=== PATIENT | female | born 1935 | race Caucasian/White ===

== ENCOUNTER → 2017-06-14 | Day surgery (SDC) | payer MEDICARE, BC ==
[2017-06-12 11:39] LABS: BASOPHILS # (AUTO) 0.1 (0.0-0.1); BASOPHILS % 0.8 % (0.0-1.0); EOSINOPHILS # (AUTO) 0.1 (0.0-0.4); EOSINOPHILS % 1.5 % (0.0-6.0); HEMATOCRIT 39.1 % (34.2-44.1); HEMOGLOBIN 12.8 g/dL (12.0-16.0); LYMPHOCYTES # (AUTO) 3.6 (1.0-3.2); LYMPHOCYTES % 38.6 % (18.0-39.1); MEAN CORPUSCULAR HEMOGLOBIN 30.9 pg (28-32); MEAN CORPUSCULAR HGB CONC 32.7 g/dL (31-35); MEAN CORPUSCULAR VOLUME 94.4 fL (81-99); MONOCYTES # (AUTO) 0.9 (0.2-0.8); MONOCYTES % 9.2 % (4.4-11.3); NEUTROPHILS # (AUTO) 4.5 (2.1-6.9); PLATELET COUNT 266 x10e3/uL (140-360); RED BLOOD COUNT 4.14 x10e6/uL (3.6-5.1); RED CELL DISTRIBUTION WIDTH 12.8 % (11.7-14.4)
[~2017-06-14] MED LIST: ADVAIR 250-501 EACH INH; ARMOUR PO; ARMOUR THYROID15 MG PO; ASA81 MG; ASPIR 8181 MG; ASPIR 8181 MG PO; CALCIUM PO; DYMISTA NASAL S23 GM; ELAVIL25 MG PO; EVOLOCUMAB INJ; FOSINOPRIL SODI10 MG PO; HYDROCHLOROTHIA25 MG; ISOSORBIDE MON120 MG PO; ISOSORBIDE MONO30 MG PO; LASIX40 MG PO; LIDOCAINE HCL 2% LOCAL INJ 5 ML SDV VIAL INJ ONE; NEXIUM40 MG PO; NITROGLYCERIN0.4 MG SL; NITROQUICK0.4 M1; POTASSIUM CHLO10 ME1 PO; PROPOFOL IV EMULSION 10 MG/ML 50 ML VIAL ONE; PROTONIX40 MG PO; RANEXA500 MG PO; VITAMIN B COMP1 EAC1 PO; VITAMIN D3400 UNIT PO; Z ARMOUR THYROID; Z.0.ISOSORBIDE MONO6 PO; Z.0.LOVAZA1 GM; Z.0.TOPROL XL100 MG PO; ZINC PO; [UNRECOGNIZED DRUG - OTHER]; [UNRECOGNIZED DRUG - OTHER] PO
--- OUTSIDE RECORDS SUMMARY | 2017-06-14 12:07 | XMS REPORT | Clinical Summary ---
Author Author [facility] Organization [facility] Address Unknown Phone Unavailable Care Team Providers Care It Portfolio Manager Name Role Phone Asked, Pcp PCP Unavailable Allergies Active Allergy Reactions Severity Noted Date Comments Alendronate Atorvastatin Fluvastatin Penicillins Pravastatin Ranitidine Hcl Vtwvujb-Uee-Tpn Reductase Inhibitors Sulfa (Sulfonamide Antibiotics) Current Medications Prescription Sig. Disp. Refills Start End Date Status Date fosinopril (MONOPRIL) 40 Take 2 tablets (80 mg 180 tablet 3 06/28/19 06/28/19 Active MG tablet total) by mouth daily. 17 18 isosorbide mononitrate Take 1 tablet (30 mg 90 tablet 3 06/28/1912/09 Active (IMDUR) 30 MG 24 hr total) by mouth daily. 17 18 tablet ranolazine (RANEXA) 500 Take 1 tablet (500 mg 180 tablet 3 06/28/19 06/28/19 Active MG 12 hr ER tablet total) by mouth 2 (two) 17 18 times a day. nitroglycerin (NITROSTAT) DISSOLVE 1 TABLET UNDER 275 tablet 3 Active 0.4 MG SL tablet THE TONGUE EVERY 5 17 MINUTES NEEDED CHEST PAIN ARMOUR THYROID 60 mg TK 1 T PO D 2 04/17/20 Active tablet 16 pantoprazole (PROTONIX) TK 1 T PO BID AC 2 04/28/19 Active 40 MG EC tablet 17 cholecalciferol (VITAMIN Take 10,000 Units by Active D3) 10,000 unit capsule mouth daily. CALCIUM CARB,GLUC/MAG Take 1 capsule by mouth Active OX,GLUC (CALCIUM daily. MAGNESIUM ORAL) amitriptyline (ELAVIL) 25 Take 25 mg by mouth Active MG tablet nightly as needed for sleep. metoprolol succinate XL Take 1 tablet (50 mg 90 tablet 3 08/15/19 Active (TOPROL-XL) 50 mg 24 hr total) by mouth daily. 17 18 tablet SYMBICORT 160-4.5 U 1 PUFF PO BID 6 01/03/20 Active mcg/actuation inhaler 17 brompheniramine-pseudoeph TK 5 ML PO Q 4 TO 6 H FOR 0 01/02/20 Active -DM 2-30-10 mg/5 mL syrup 7 DAYS 17 levoFLOXacin (LEVAQUIN) TK 1 T PO D 0 01/02/20 Active 500 MG tablet 17 predniSONE (DELTASONE) 10 TK 1 T PO BID 0 01/02/20 Active mg tablet 17 potassium chloride Take 1 tablet (10 mEq 90 tablet 3 02/06/20 Active (KLOR-CON) 10 MEQ CR total) by mouth daily. 17 18 tabletIndications: Heart failure, unspecified heart failure chronicity, unspecified heart failure type, Secondary hypertension, Coronary artery disease without angina pectoris, unspecified vessel or lesion type, unspecified whether [place] or transplanted heart evolocumab (REPATHA) 140 Inject 1 mL (140 mg 6 Syringe 3 05/28/19 Active mg/mL pen injector total) under the skin 18 19 injectionIndications: every 14 (fourteen) days. Coronary arteriosclerosis, Heart failure, unspecified heart failure chronicity, unspecified heart failure type furosemide (LASIX) 20 mg Take 2 tablets (40 mg 180 tablet 3 05/28/19 05/28/19 Active tabletIndications: Heart total) by mouth daily. 18 19 failure, unspecified heart failure chronicity, unspecified heart failure type, Secondary hypertension, Coronary artery disease without angina pectoris, unspecified vessel or lesion type, unspecified whether [place] or transplanted heart, Coronary arteriosclerosis aspirin (ECOTRIN) 81 MG Take 1 tablet (81 mg 90 tablet 3 05/28/19 Active enteric coated total) by mouth daily. 18 19 tabletIndications: Coronary arteriosclerosis, Heart failure, unspecified heart failure chronicity, unspecified heart failure type aspirin (ECOTRIN) 81 MG Take 1 tablet (81 mg 90 tablet 3 06/28/19 Discontin enteric coated tablet total) by mouth daily. 17 18 ued metoprolol succinate XL Take 1 tablet (100 mg 90 tablet 3 06/28/19 07/11/19 Discontin (TOPROL-XL) 100 mg 24 hr total) by mouth daily. 17 17 ued tablet nitroglycerin (NITROSTAT) Place 1 tablet (0.4 mg 30 tablet 11 06/28/19 Discontin 0.4 MG SL tablet total) under the tongue 17 17 ued every 5 (five) minutes as needed for chest pain. metoprolol succinate XL Take 3 tablets (75 mg 90 tablet 6 07/11/19 08/15/19 Discontin (TOPROL-XL) 25 mg 24 hr total) by mouth daily. 17 17 ued tabletIndications: Bradycardia ezetimibe (ZETIA) 10 mg TK 1 T PO QD 0 01/19/20 02/07/20 Discontin tablet 17 17 ued furosemide (LASIX) 20 mg Take 1 tablet (20 mg 180 tablet 3 02/06/20 05/28/19 Discontin tabletIndications: Heart total) by mouth daily. 17 18 ued failure, unspecified heart failure chronicity, unspecified heart failure type, Secondary hypertension, Coronary artery disease without angina pectoris, unspecified vessel or lesion type, unspecified whether [place] or transplanted heart evolocumab (REPATHA Inject 1 mL (140 mg 2 Syringe 12 02/06/20 SURECLICK) 140 mg/mL pen total) under the skin 17 17 injector injection every 14 (fourteen) days for 2 doses. 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 In 2003 after her CABG her SVG to OM and ANGULO were occluded--she underwent LM PCI and [place] OM PCI. She has intermittent chest pain, sometimes in middle of back, 2-3x/week. It typically lasts until she takes 1-2 NTG SL. Pain occurs often when supine, resting. Pain is sometimes pounding but lately has been a different nature such as stabbing pain. Her chest pain is increasing in frequency. INTERIM HISTORY: She had a angiogram January 2015 showing patent LM stent, OM lesion 70% but negative FFR, and 40-50% stenosis of RCA distal to SVG anastomosis. She recently developed pain in both legs since climbing up and down the stairs last week at a restaurant. Her chest pain is much better, except rarely at night if sleeps on side. Her GERD is severe. Assessment / Plan 1. Essential hypertension - Increase fosinopril to 80 daily. Continue metoprolol I10: Essential (primary) hypertension ELECTROCARDIOGRAM HIGH BLOOD PRESSURE: CARE INSTRUCTIONS LEARNING ABOUT HIGH BLOOD PRESSURE 2. Coronary arteriosclerosis I25.10: Atherosclerotic heart disease of [place] coronary artery without angina pectoris fosinopril 40 mg tablet - Take 2 tablet(s) every day by oral route for 90 days. Qty: 180 tablet(s) Refills : 1 [facility]: [facility] [id number] 3. Pain in lower limb - Right leg pain/swelling. Check Doppler. M79.669: Pain in unspecified lower leg ULTRASOUND, ARTERIAL LEG, BILATERAL - Note to Imaging Facility: Bilateral Arterial Venous Doppler Problem Noted Date Heart failure 02/07/2017 Secondary hypertension 02/07/2017 Coronary artery disease without angina pectoris 02/07/2017 Essential hypertension 08/14/2016 Coronary arteriosclerosis 07/10/2016 Bradycardia 07/10/2016 Encounters Date Type Specialty Care Team Description 05/28/2017 Office Visit Cardiology Angelo Ramírez MD Coronary arteriosclerosis (Primary Dx); Heart failure, unspecified heart failure chronicity, unspecified heart failure type; Secondary hypertension; Coronary artery disease without angina pectoris, unspecified vessel or lesion type, unspecified whether [place] or transplanted heart 05/27/2017 Telephone Cardiology Traci Wright, BIA Labs Only 05/24/2017 Telephone Cardiology Jocelyn Chow, RN Return Call 05/24/2017 Telephone Cardiology Traci Wright, BIA Labs Only 02/06/2017 Orders Only Cardiology Angelo Ramírez MD 02/05/2017 Office Visit Cardiology Angelo Ramírez MD Heart failure, unspecified heart failure chronicity, unspecified heart failure type (Primary Dx); Secondary hypertension; Coronary artery disease without angina pectoris, unspecified vessel or lesion type, unspecified whether [place] or transplanted heart 08/14/2016 Office Visit Cardiology Angelo Ramírez MD Coronary arteriosclerosis (Primary Dx); Bradycardia; Essential hypertension 07/16/2016 Orders Only Cardiology Carolyn Reaves MA Bradycardia 07/10/2016 Office Visit Cardiology Angelo Ramírez MD Coronary arteriosclerosis (Primary Dx); Bradycardia 06/27/2016 Refill Cardiology Angelo Ramírez MD Med Refill 06/27/2016 Refill Cardiology Liane Barajas RN Med Refill after 06/13/2016 Family History Medical History Relation Name Comments Cardiomyopathy Mother Relation Name Status Comments Mother Social History Tobacco Use Types Packs/Day Years Used Date Former Smoker Cigarettes Smokeless Tobacco: Never Used Tobacco Cessation: Counseling Given: Yes Alcohol Use Drinks/Week oz/Week Comments No Sex Assigned at Date Recorded Not on file Last Filed Vital Signs Vital Sign Reading Time Taken Blood Pressure 143/74 05/28/2017 2:12 PM SALES PERSON Pulse 55 05/28/2017 2:12 PM SALES PERSON Temperature - - Respiratory Rate 17 07/10/2016 4:31 PM CDT Oxygen Saturation - - Inhaled Oxygen - - Concentration Weight 72.6 kg (160 lb) 05/28/2017 2:12 PM SALES PERSON Height 157.5 cm (5' 2") 05/28/2017 2:12 PM SALES PERSON Body Mass Index 29.26 05/28/2017 2:12 PM SALES PERSON Plan of Treatment Health Maintenance Due Date Last Done Comments ZOSTER VACCINE 1996 PNEUMOCOCCAL 2001 POLYSACCHARIDE VACCINE AGE 65 AND OVER PNEUMOCOCCAL-13 2001 INFLUENZA VACCINE 11/20/2016 Procedures Procedure Name Priority Date/Time Associated Diagnosis Comments CV HOLTER MONITOR 48 HOUR Routine 07/10/2016 Bradycardia Results for this 5:13 PM CDT procedure are in the results section. after 06/13/2016 Results * CBC with platelet and differential (05/27/2017 10:05 AM) Component Value Ref Range WBC 7.5 3.8 - 10.8 Thousand/uL RBC 4.26 3.80 - 5.10 Million/uL HGB 13.0 11.7 - 15.5 g/dL HCT 38.4 35.0 - 45.0 % MCV 90.1 80.0 - 100.0 fL MCH 30.5 27.0 - 33.0 pg MCHC 33.9 32.0 - 36.0 g/dL RDW 12.2 11.0 - 15.0 % Platelet count 287 140 - 400 Thousand/uL MPV 9.6 7.5 - 12.5 fL Neutrophils, absolute 2,633 1,500 - 7,800 cells/uL Lymphocytes, absolute 3,990 (H) 850 - 3,900 cells/uL Monocytes, absolute 713 200 - 950 cells/uL Eosinophils, absolute 113 15 - 500 cells/uL Basophils, absolute 53 0 - 200 cells/uL Neutrophils 35.1 % Lymphocytes 53.2 % Monocytes 9.5 % Eosinophils 1.5 % Basophils + RC 0.7 % Specimen Performing Laboratory [facility] * B natriuretic peptide (05/27/2017 10:05 AM) Component Value Ref Range BNP 68 <100 pg/mL Comment: BNP levels increase with age in the general population with the highest values seen in individuals greater than 75 years of age. Reference: J. Am. Tomas. Cardiol. 2002; 40:976-982. Specimen Performing Laboratory [facility] * Lipid panel (05/27/2017 10:05 AM) Component Value Ref Range Cholesterol, total 223 (H) <200 mg/dL HDL cholesterol 57 >50 mg/dL Triglycerides 217 (H) <150 mg/dL LDL cholesterol 130 (H) mg/dL (calc) calculated Comment: Reference range: <100 Desirable range <100 mg/dL for patients with CHD or diabetes and <70 mg/dL for diabetic patients with known heart disease. LDL-C is now calculated using the Haroon-Osvaldo calculation, which is a validated novel method providing better accuracy than the Friedewald equation in the estimation of LDL-C. Haroon ALBARADO et al. DINH. 2013;310(19): 5851-5241 (http://education.Maktoob.[employer]/faq/VLK497) Cholesterol/HDL ratio 3.9 <5.0 (calc) Non-HDL cholesterol 166 (H) <130 mg/dL (calc) Comment: For patients with diabetes plus 1 major ASCVD risk factor, treating to a non-HDL-C goal of <100 mg/dL (LDL-C of <70 mg/dL) is considered a therapeutic option. Specimen Performing Laboratory [facility] * Basic metabolic panel (05/27/2017 10:05 AM) Component Value Ref Range Glucose 98 65 - 99 mg/dL Comment: Fasting reference interval BUN, whole blood 24 7 - 25 mg/dL Creatinine 1.17 (H) 0.60 - 0.88 mg/dL Comment: For patients >49 years of age, the reference limit for Creatinine is approximately 13% higher for people identified as -Estonian. EGFR Non-Afr. Estonian 44 (L) > OR=60 mL/min/1.73m2 EGFR 51 (L) > OR=60 mL/min/1.73m2 BUN/creatinine ratio 21 6 - 22 (calc) Sodium 138 135 - 146 mmol/L Potassium 4.3 3.5 - 5.3 mmol/L Chloride 100 98 - 110 mmol/L CO2 30 20 - 31 mmol/L Calcium 9.7 8.6 - 10.4 mg/dL Specimen Performing Laboratory [facility] * Cv holter monitor 48 hour (07/10/2016 5:13 PM) Component Value Ref Range Hookup Date 20160710 Hookup Time 090444 Acquisition Duration 436320 # of Ventricular Beats in 0 Runs # OF LONGEST VENTRICULAR BEATS # of Supraventricular 0 Beats in Runs # of Longest Supraventricular Beats Max Heart Rate 83 Min Heart Rate 39 Longest RR 1.718 Diagnosis -EPISODES OF BRADYCARDIA- Specimen Performing Laboratory [facility] [address] [place] [address] * ECG 12 lead (07/10/2016 3:30 PM) Component Value Ref Range Ventricular rate 50 Atrial rate 50 AR interval 116 QRSD interval 84 QT interval 434 QTC interval 395 P axis 1 33 QRS axis 1 26 T wave axis 48 EKG impression Sinus bradycardia-ST & T wave abnormality, consider anterior ischemia-Abnormal ECG-In automated comparison with ECG of 27-JAN-2015 08:51,-premature atrial complexes are no longer present but otherwise no significant change--- Specimen Performing Laboratory [facility] [address] [place] [address] after 06/13/2016 Insurance Payer Benefit Subscriber ID Type Phone Address Plan / Group MEDICARE MEDICARE xxxxxxxxxx Medicare [place], [place] PART A AND B BCBS BCBS xxxxxxxxxxxx PPO CHOICE PPO/SHLOMO ROSS PPO JIMMY ALONSO Third Self 1935 Home: [address] [place] [address] Liability
--- OUTSIDE RECORDS SUMMARY | 2017-06-14 12:07 | XMS REPORT ---
Author Author [facility] Address Unknown Phone Unavailable Care Team Providers Care Blind Hanger Name Role Phone KRISTIAN HDEZ Unavailable Unavailable Problems This patient has no known problems. Allergies, Adverse Reactions, Alerts This patient has no known allergies or adverse reactions. Medications This patient has no known medications. Results Test Description Test Time Test Comments Text Results Atomic Results Result Comments CHEST SINGLE (PORTABLE) [address] [address] Patient Name: JIMMY ACEVEDO MR #: [id number] : 1935 Age/Sex: 81/F Req #: [id number] Adm Physician: KRISTIAN HDEZ MD Ordered by: CARLOS JO MD Report #: [id number] Location: [facility] Room/Bed: [place] [address] Procedure: [id number] DX/CHEST SINGLE (PORTABLE) Exam Date: 01/16/17 Exam Time: 0545 REPORT STATUS: Signed EXAMINATION: CHEST SINGLE (PORTABLE) INDICATION: Angina COMPARISON: 01/15/2017 FINDINGS: TUBES and LINES: None. LUNGS: Lungs are not well inflated. Lungs are clear. There is mild prominence of the central pulmonary vasculature, consistent with pulmonary venous congestion. PLEURA: No pleural effusion or pneumothorax. HEART AND MEDIASTINUM: Cardiac size is mildly enlarged. There are atherosclerotic calcifications within the aorta. BONES AND SOFT TISSUES: No acute osseous lesion. Soft tissues are unremarkable. UPPER ABDOMEN: No free air under the diaphragm. IMPRESSION: 1. No acute thoracic abnormality. 2. Cardiogenic vascular congestion without decompensation. Signed by: Dr. Prieto Bryan M.D. on 01/16/2017 6:05 AM Dictated By: PRIETO BROOKS MD 4 Transcribed By: NOEMY on 01/16/17604 COPY TO: CARLOS JO MD CHEST SINGLE (PORTABLE) [place] [address] Patient Name: JIMMY ACEVEDO MR #: [id number] : 1935 Age/Sex: 81/F Req #: [id number] Adm Physician: Ordered by: CARLOS JO MD Report #: [id number] Location: ER Room/Bed: Procedure: [id number] DX/CHEST SINGLE (PORTABLE) Exam Date: 01/15/17 Exam Time: 904 REPORT STATUS: Signed PROCEDURE: CHEST SINGLE (PORTABLE) COMPARISON: Chest x-ray, 08/29/16 INDICATIONS: SEVERE CHEST PAIN FINDINGS: Lines and tubes: None Heart size normal outflow lumbar and superior No focal pulmonary opacity, pleural effusion or pneumothorax. Upper abdomen unremarkable with no free air. No acute bony abnormality. Wire sternotomy sutures again noted. CONCLUSION: No evidence for acute disease. Dictated by: Ki Altman M.D. on 01/15/2017 at 9:33 Electronically approved by: Ki Altman M.D. on 01/15/2017 at 9:33 Dictated By: KI ALTMAN MD Transcribed By: YOEL on 01/15/17 0933 COPY TO: CARLOS JO MD
--- NOTE | 2017-06-14 16:16 | Operative Report ---
DATE OF PROCEDURE: June 14, 2017 REFERRING PHYSICIAN: Dr. Analia Merino. PROCEDURE PERFORMED: Esophagogastroduodenoscopy with esophageal dilatation over a wire. INDICATIONS FOR PROCEDURE: Dysphagia to solids and liquids. MEDICATION: Patient was done general endotracheal anesthesia. PROCEDURE: With the patient in the left lateral decubitus position and after induction of adequate general endotracheal anesthesia, the flexible fiberoptic Olympus gastroscope was introduced into the esophagus under direct visualization without any difficulty. A large amount of solids and liquid debris were encountered in the esophagus and the liquid debris was suctioned with ease. The scope then was navigated around the solid debris towards the GE junction which was strictured, we traversed with gentle persistent pressure with the scope. The stricture then was dilated to a size 17 Savory over a wire. The solid debris was then pushed into the stomach and the mucosa overlying the antrum on the body revealed some patchy areas of erythema. Pylorus was of normal contour and shape. Was intubated with ease and scope was advanced all the way to the 2nd portion of the duodenum. The scope was then withdrawn slowly. Mucosa overlying the proximal 2nd portion and the duodenal bulb appeared to be within normal limits. The scope was then withdrawn back into the stomach and retroflexed and mucosa overlying the fundus and the cardia grossly appeared to be within normal limits. The scope was then straightened out and it was subsequently withdrawn. Patient tolerated the procedure well. IMPRESSION: 1. Large amount of retained solid and liquid debris in the esophagus. 2. Tight stricture at gastroesophageal junction dilated over a wire to a size 17 Savory. 3. Gastritis. PLAN: Initiate GI soft diet. Continue Protonix 40 mg 1 p.o. a.c. b.i.d. Job#: [id number] cc:ANALIA MERINO MD
== END | disposition home or self-care (01) ==
LOC: OR 12:05
PROVIDERS: ATTEND Internal Medicine Gastroenterology
DX: K22.2 Esophageal obstruction (principal); K29.70 Gastritis, unspecified, without bleeding; T18.128A Food in esophagus causing other injury, initial encounter; K21.0 Gastro-esophageal reflux disease with esophagitis; I10 Essential (primary) hypertension; I25.810 Atherosclerosis of coronary artery bypass graft(s) without angina pectoris; X58.XXXA Exposure to other specified factors, initial encounter; Z01.810 Encounter for preprocedural cardiovascular examination; Z01.812 Encounter for preprocedural laboratory examination; Z79.82 Long term (current) use of aspirin; Z68.31 Body mass index [BMI] 31.0-31.9, adult; Z95.1 Presence of aortocoronary bypass graft; Z87.891 Personal history of nicotine dependence
CPT/HCPCS: 36415; 43450; 85025; 93005; J2001

== ENCOUNTER → 2017-06-27 | Day surgery (SDC) | payer MEDICARE, BC ==
[~2017-06-27] MED LIST changes: +FENTANYL CITRATE/PF 100MCG/2 ML INJ ONE
--- OUTSIDE RECORDS SUMMARY | 2017-06-27 12:42 | XMS REPORT | Clinical Summary ---
Author Author [facility] Address Unknown Phone Unavailable Care Team Providers Care Sewing Demonstrator Name Role Phone Asked, Pcp PCP Unavailable Allergies Active Allergy Reactions Severity Noted Date Comments Alendronate Atorvastatin Fluvastatin Penicillins Pravastatin Ranitidine Hcl Trmpebd-Vcp-Ghv Reductase Inhibitors Sulfa (Sulfonamide Antibiotics) Current Medications [...] unspecified vessel or lesion type, unspecified whether [place] or transplanted heart evolocumab (REPATHA) 140 Inject [...] unspecified vessel or lesion type, unspecified whether [place] or transplanted heart, Coronary arteriosclerosis aspirin (ECOTRIN) [...] unspecified vessel or lesion type, unspecified whether [place] or transplanted heart evolocumab (REPATHA Inject 1 [...] ANGULO were occluded--she underwent LM PCI and [place] OM PCI. She has intermittent chest pain, [...] Coronary arteriosclerosis I25.10: Atherosclerotic heart disease of [place] coronary artery without angina pectoris fosinopril 40 mg tablet - Take 2 tablet(s) every day by oral route for 90 days. Qty: 180 tablet(s) Refills : 1 Pharmacy: [facility] [id number] 3. Pain in lower limb - Right [...] unspecified vessel or lesion type, unspecified whether [place] or transplanted heart 05/27/2017 Telephone Cardiology Traci [...] unspecified vessel or lesion type, unspecified whether [place] or transplanted heart 08/14/2016 Office Visit Cardiology Angelo Ramírez MD Coronary arteriosclerosis (Primary Dx); Bradycardia; Essential hypertension 07/16/2016 Orders Only Cardiology Carolyn Reaves MA Bradycardia 07/10/2016 Office Visit Cardiology Angelo Ramírez MD Coronary arteriosclerosis (Primary Dx); Bradycardia 06/27/2016 Refill Cardiology Angelo Ramírez MD Med Refill 06/27/2016 Refill Cardiology Liane Barajas RN Med Refill after 06/26/2016 Family History Medical History Relation Name Comments [...] Taken Blood Pressure 143/74 05/28/2017 2:12 PM TABLEAU ADMINISTRATOR Pulse 55 05/28/2017 2:12 PM TABLEAU ADMINISTRATOR Temperature - - Respiratory Rate 17 07/10/2016 4:31 PM CDT Oxygen Saturation - - Inhaled Oxygen - - Concentration Weight 72.6 kg (160 lb) 05/28/2017 2:12 PM TABLEAU ADMINISTRATOR Height 157.5 cm (5' 2") 05/28/2017 2:12 PM TABLEAU ADMINISTRATOR Body Mass Index 29.26 05/28/2017 2:12 PM TABLEAU ADMINISTRATOR Plan of Treatment Health Maintenance Due Date Last Done Comments ZOSTER VACCINE 1996 PNEUMOCOCCAL 2001 POLYSACCHARIDE VACCINE AGE 65 AND OVER PNEUMOCOCCAL-13 2001 INFLUENZA VACCINE 11/20/2016 Procedures Procedure Name Priority Date/Time Associated Diagnosis Comments CV HOLTER MONITOR 48 HOUR Routine 07/10/2016 Bradycardia Results for this 5:13 PM CDT procedure are in the results section. after 06/26/2016 Results * CBC with platelet and differential [...] LDL-C. Haroon ALBARADO et al. DINH. 2013;310(19): 9097-6008 (http://education.[employer]le[employer]/faq/AKO211) Cholesterol/HDL ratio 3.9 <5.0 (calc) Non-HDL cholesterol [...] approximately 13% higher for people identified as -Serbian. EGFR Non-Afr. Serbian 44 (L) > OR=60 mL/min/1.73m2 EGFR 51 [...] Ref Range Hookup Date 20160710 Hookup Time 309701 Acquisition Duration 036119 # of Ventricular Beats in 0 Runs # OF LONGEST VENTRICULAR BEATS # of Supraventricular 0 Beats in Runs # of Longest Supraventricular Beats Max Heart Rate 83 Min Heart Rate 39 Longest RR 1.718 Diagnosis -EPISODES OF BRADYCARDIA- Specimen Performing Laboratory [facility] [address] [place] [id number] * ECG 12 lead (07/10/2016 3:30 PM) Component Value Ref Range Ventricular rate 50 Atrial rate 50 MO interval 116 QRSD interval 84 QT interval 434 QTC interval 395 P axis 1 33 QRS axis 1 26 T wave axis 48 EKG impression Sinus bradycardia-ST & T wave abnormality, consider anterior ischemia-Abnormal ECG-In automated comparison with ECG of 27-JAN-2015 08:51,-premature atrial complexes are no longer present but otherwise no significant change--- Specimen Performing Laboratory [facility] [address] [place] [address] after 06/26/2016 Insurance Payer Benefit Subscriber ID Type Phone Address Plan / Group MEDICARE MEDICARE xxxxxxxxxx Medicare [place], [place] PART A AND B BCBS BCBS xxxxxxxxxxxx PPO CHOICE PPO/SHLOMO ROSS PPO JIMMY ALONSO Third Self 1935 Home: [address] [place] [address] Liability
--- NOTE | 2017-06-27 15:39 | Operative Report ---
DATE OF PROCEDURE: June 27, 2017 REFERRING PHYSICIAN: Dr. Analia Merino. PROCEDURE PERFORMED: Esophagogastroduodenoscopy with esophageal dilatation INDICATIONS FOR ESOPHAGOGASTRODUODENOSCOPY: Dysphagia and history of esophageal stricture. MEDICATION: Patient was done under MAC. Please see anesthesiologist's note. PROCEDURE: With patient in the left lateral decubitus position, flexible fiberoptic Olympus gastroscope was introduced into the esophagus under direct visualization without any difficulty. There was some patchy erythema noted in distal esophagus. A mild stricture was noted at the GE junction that was dilated to size 50-Romanian Soto. The scope was then advanced with ease into the stomach. Mucosa overlying the antrum and the body revealed some patchy areas of erythema. Pylorus appeared to be of normal contour and shape. Was intubated with ease and the scope was advanced all the way to the 2nd portion of the duodenum. The scope was then withdrawn slowly. Mucosa overlying the proximal 2nd portion and the duodenal bulb appeared to be within normal limits. The scope was then withdrawn back into the stomach and retroflexed and the mucosa overlying the fundus and the cardia appeared to be within normal limits. The scope was then straightened out. The stomach was decompressed. Scope was subsequently withdrawn. Patient tolerated the procedure well. IMPRESSION: 1. Distal esophagitis. 2. Esophageal stricture at gastroesophageal junction dilated to a size 50-Romanian Soto. 3. Gastritis, mild. PLAN: Continue Protonix 40 mg 1 p.o. a.c. b.i.d. The patient will need additional dilatation if symptoms have not resolved completely. Job#: [id number] cc:ANALIA MERINO MD
== END | disposition home or self-care (01) ==
LOC: OR 12:39
PROVIDERS: ATTEND Internal Medicine Gastroenterology
DX: K22.2 Esophageal obstruction (principal); K29.70 Gastritis, unspecified, without bleeding; K21.0 Gastro-esophageal reflux disease with esophagitis; K25.9 Gastric ulcer, unspecified as acute or chronic, without hemorrhage or perforation; K44.9 Diaphragmatic hernia without obstruction or gangrene; I25.810 Atherosclerosis of coronary artery bypass graft(s) without angina pectoris; I10 Essential (primary) hypertension; E03.9 Hypothyroidism, unspecified; R05 Cough; Z79.82 Long term (current) use of aspirin; Z68.31 Body mass index [BMI] 31.0-31.9, adult; Z95.1 Presence of aortocoronary bypass graft; Z95.5 Presence of coronary angioplasty implant and graft; Z87.01 Personal history of pneumonia (recurrent)
CPT/HCPCS: 43235; 43450; J2001

== ENCOUNTER → 2017-08-27 | Outpatient (CLI) | payer MEDICARE, BC ==
[~2017-08-27] MED LIST changes: -FENTANYL CITRATE/PF 100MCG/2 ML INJ ONE; -LIDOCAINE HCL 2% LOCAL INJ 5 ML SDV VIAL INJ ONE; -PROPOFOL IV EMULSION 10 MG/ML 50 ML VIAL ONE
--- NOTE | 2017-08-27 12:52 | Diagnostic Imaging Report ---
PROCEDURE:CHEST 2 VIEWS TECHNIQUE:PA and lateral chest INDICATION:Bronchitis COMPARISON:[facility], DX, CHEST SINGLE (PORTABLE), 01/16/2017, 5:43. FINDINGS: Left perihilar predominant air space opacity. Bilateral reticular opacity. Right fibronodular pleural scar. Postoperative sequela of CABG, with intact midline wires. Normal heart size. Normal central vasculature caliber. Intact skeleton. Descending thoracic and abdominal aortic atherosclerosis. CONCLUSION: Left perihilar airspace and bilateral lower lobe interstitial opacities suspicious for pneumonia. Dictated by: Willie Salgado M.D. on 08/27/2017 at 12:54 Electronically approved by: Willie Salgado M.D. on 08/27/2017 at 12:54
== END ==
LOC: RAD 11:48
PROVIDERS: ATTEND Family Medicine
DX: J40 Bronchitis, not specified as acute or chronic (principal); R09.1 Pleurisy
CPT/HCPCS: 71046

== ENCOUNTER 2020-11-29 16:14 | Emergency (ER) | payer MEDICARE, OTHER ==
[~2020-11-29] VITALS: Ht 157.5 cm; Wt 69.9 kg
[~2020-11-29 16:14] MED LIST changes: -ASPIR 8181 MG
[2020-11-29] MEDS ORDERED: SODIUM CHLORIDE 0.9% 1000ML 1,000 ML IV SCH (18:45)
[2020-11-29] MEDS ORDERED: SODIUM CHLORIDE 0.9% 1000ML 1,000 ML ONE (19:59)
== END 2020-11-29 21:18 | disposition home or self-care (01) ==
LOC: FSED 18:21
DX: R19.7 Diarrhea, unspecified (principal); K62.5 Hemorrhage of anus and rectum; K60.0 Acute anal fissure; I10 Essential (primary) hypertension; Z86.79 Personal history of other diseases of the circulatory system
CPT/HCPCS: 80053; 81003; 82270; 82553; 84484; 85025; 99283; J7030